=== PATIENT | male | born 1940 | race Caucasian/White ===

== ENCOUNTER 2016-06-30 10:44 | Emergency (ER) | payer OTHER ==
[2016-06-30 12:15] VITALS: BP 142/56; PULSE 72; RESP 18; TEMP 99; O2SAT 92
[2016-06-30] MEDS ORDERED: AZITHROMYCIN 250 MG TAB PO ONE (13:17)
--- NOTE | 2016-06-30 13:18 | DX ---
PA and Lateral Chest Clinical Indications: Cough and dyspnea Comparison: August 10, 2011 Findings: Perihilar bronchial wall thickening and moderate - severely prominent lung volumes are aga in present and consistent with underlying COPD and/or recurrent airways disease. It is difficult to e xclude an early posterior infiltrate in the right lower lobe. There is no pleural fluid. Heart size a nd pulmonary vascularity remain normal. A left chest wall pacer device an associated 3 pacer leads re main in place. Impression: Possible early right lower lobe pneumonia.
--- NOTE | 2016-06-30 13:24 | UCPHY ---
H & P Patient Type: New Chief Complaint Nursing Narrative: sinus and chest congestion started 3 days ago , denies fevers. shortness of breath, chest/lung pain Time Seen by Provider: 06/30/16 13:08 HPI/ROS: This patient reports a 4 day history of nasal congestion. He developed dry cough over the past few days associated with this. He has decreased sleep due to the dry cough. He has no other associated symptoms. He notes no exacerbating or alleviating factors for his symptoms. He is accompanied by his . ROS: Constitutional: No high fevers or chills. No significant fatigued despite the cough. HEENT: No facial pain. No sore throat. Pulmonary: No pleuritic pain. No respiratory distress. Cardiac: No chest pain. No heart palpitations or lightheadedness GI: No nausea vomiting or diaphoresis. : No symptoms musculoskeletal: No lower extremity swelling or pain Integumentary: No symptoms Endocrine: No symptoms and complete review of symptoms is otherwise negative Source: Patient Exam Limitations: No limitations - Medical/Surgical History Hx Cardiac Disease: Yes Other PMH: CVA, [place], PACEMAKER AND CARDIAC STENTS, HIGH CHOLESTROL - Family History Significant Family History: No pertinent family hx - Social History Smoking Status: Former smoker Alcohol Use: Occasionally Drug Use: None - Physical Exam Exam: General Appearance: Alert, no distress. Eyes: Pupils equal and round no pallor or injection. ENT, Mouth: Mucous membranes moist. Respiratory: Faint expiratory wheeze bilaterally. Very mild rales at the left base Cardiovascular: Regular rate and rhythm. No murmur gallop or rub. No JVD. No peripheral edema Gastrointestinal: Abdomen is soft and nontender, no masses, bowel sounds normal. Neurological: Alert with no focal deficits Skin: Warm and dry, no rashes. Musculoskeletal: Neck is supple nontender. Extremities are symmetrical, full range of motion. Psychiatric: Mood and affect are normal DIFFERENTIAL DIAGNOSIS: After history and physical exam differential diagnosis was considered for URI with cough, bronchitis, pneumonia Constitutional: Initial Vital Signs Temperature (C) 37.2 C 06/30/16 12:10 Heart Rate 72 06/30/16 12:10 Respiratory Rate 18 06/30/16 12:10 Blood Pressure 142/56 H 06/30/16 12:10 O2 Sat (%) 92 06/30/16 12:10 O2 Delivery Mode Room Air Allergies/Adverse Reactions: benzocaine [Benzocaine] Allergy (Severe, Verified 06/30/16 12:09) Anaphylaxis niacin [From Niaspan] Allergy (Severe, Verified 06/30/16 12:09) Rash simvastatin [Simvastatin] Allergy (Severe, Verified 06/30/16 12:09) Hives warfarin [Warfarin] Allergy (Severe, Verified 06/30/16 12:09) Other-Enter Comments Home Medications: Medication Instructions Recorded Aspirin/Dipyridamole 25/200 25 mg PO BID 08/08/11 [Aggrenox] Atorvastatin Calcium [Lipitor] 10 mg PO DAILY 08/08/11 Carvedilol 25 mg PO BID 08/08/11 Cholecalciferol (Vitamin D3) 1,000 unit PO BID 08/08/11 [Vitamin D3] Ecotrin 81 mg PO DAILY 08/08/11 Nitroglycerin [Nitrostat] 0.4 mg SL 08/08/11 [place]-3 Fatty Acids/Fish Oil [Fish 1 each PO BID 08/08/11 Oil 1,000 mg Softgel] Piroxicam 20 mg PO DAILY PRN 08/08/11 Psyllium Seed [Metamucil] 5.85 gm PO DAILY 08/08/11 Ramipril [Altace] 5 mg PO DAILY 08/08/11 Albuterol Hfa Anes Only [Proair 2 puffs IH Q4 PRN #1 mdi 06/30/16 Hfa Icu (*)] Azithromycin [Zithromax] 250 mg PO DAILY #4 tab 06/30/16 Medical Decision Making - Diagnostics Imaging: Chest x-ray: I read this as left basilar infiltrate versus atelectasis Dr. Aguila-radiologist actually read as right basilar possible early infiltrate. Otherwise evidence of mild bronchitis by my interpretation. ED Course/Re-evaluation: I counseled patient regarding evidence of early pneumonia. I suggested an IV for blood cultures and customary workup. However the patient is unwilling to proceed with an IV at this time and requests oral medications and outpatient treatment. He does not have SIRS criteria and he appears very well clinically. He is treated with 1st dose of Zithromax. Given his wheeze a think that he also has a mild element of bronchitis associated with this-bronchopneumonia. Will also provide an inhaler. He understands the need to go to the emergency department if he has any significant worsening of symptoms despite the treatment plan - Data Points Medications Given: Discontinued Medications Azithromycin (Zithromax) 500 mg PO EDNOW ONE PRN Reason: Protocol Stop: 06/30/16 13:18 Last Admin: 06/30/16 13:22 Dose: 500 mg Departure - Departure Disposition: Home, Routine, Self-Care Clinical Impression: Bronchopneumonia Condition: Good Instructions: Community Acquired Pneumonia (ED) Additional Instructions: Diagnosis: Bronchopneumonia Plan: Humidifier Albuterol inhaler with spacer for cough, wheeze or shortness of breath You received 1st dose of Zithromax antibiotic day. Continue this with next dose tomorrow once daily. Go to the emergency department if he has any significant worsening symptoms despite the treatment plan Referrals: Ami Morales MD [Primary Care Provider] - As per Instructions Prescriptions: Albuterol Hfa Anes Only [Proair Hfa Icu (*)] 2 puffs IH Q4 PRN #1 mdi PRN Reason: Wheezing Azithromycin [Zithromax] 250 mg PO DAILY #4 tab - PQRS PQRS Measurement: 134: Depression screening and followup, PRIME MD-PHQ2 (12 years and older) Over the last 2 weeks, how often have you been bothered by any of the following problems? 1. Feeling down, depressed, or hopeless? 2. Little interest or pleasure in doing things? Patient answered no to both 1 and 2 130: Documentation of medications. Reviewed all patient medications, doses, route and frequency. 226: Do you smoke? [No.] 47: 65 and older: Advanced care planning. Patient designates surrogate decision maker as spouse 51: 18 years old and older with diagnosis of COPD, spirometry performance. NA 52: 18 years old and older with COPD and symptoms of COPD or FEV1<60% predicted prescribed a B Agonist. NA
== END 2016-06-30 13:30 | disposition home or self-care (01) ==
LOC: CED 10:44
DX: J18.9 Pneumonia, unspecified organism (principal); Z95.0 Presence of cardiac pacemaker; Z95.5 Presence of coronary angioplasty implant and graft; Z86.73 Personal history of transient ischemic attack (TIA), and cerebral infarction without residual deficits; I25.2 Old myocardial infarction
CPT/HCPCS: 71020; G0463; 87400-PO; 99204-PO

== ENCOUNTER → 2017-11-09 | Outpatient (CLI) | payer OTHER | LOC: BHFA 10:45 | PROVIDERS: ATTEND Internal Medicine Cardiovascular Disease | DX: I42.9 Cardiomyopathy, unspecified (principal) | CPT/HCPCS: 93306-PO ==

== ENCOUNTER → 2018-07-05 | Outpatient (CLI) | payer OTHER | LOC: SUPIMAGING 12:16 | PROVIDERS: ATTEND Family Medicine | DX: R06.02 Shortness of breath (principal); R60.9 Edema, unspecified | CPT/HCPCS: 71046-PN ==

== ENCOUNTER 2018-07-09 19:26 | Inpatient (IN) | payer OTHER ==
--- NOTE | 2018-07-09 20:13 | EDPHY ---
H & P Stated Complaint: HYPOXIC, SOB, WEAK, TIRED Time Seen by Provider: 07/09/18 19:47 HPI/ROS: CHIEF COMPLAINT: Shortness of breath HISTORY OF PRESENT ILLNESS: 78-year-old male with CHF and diabetes presents with shortness of breath. Onset of shortness of breath 2 weeks ago, ago gradually increasing. Seen by primary care physician 1 week ago and placed on Lasix every other day. Since then he has had increasing shortness of breath, associated with lethargy and confusion today. Mild bilateral leg swelling without pain. No recent illness or cough. REVIEW OF SYSTEMS: complete 10 point ROS reviewed and is negative except for the noted elements in the HPI - Medical/Surgical History Hx Asthma: No Hx Chronic Respiratory Disease: No Hx Diabetes: Yes Hx Cardiac Disease: Yes Hx Renal Disease: No Hx Cirrhosis: No Hx Alcoholism: No Hx HIV/AIDS: No Other PMH: CVA, [place], PACEMAKER AND CARDIAC STENTS, HIGH CHOLESTROL, CHF, DM - Social History Smoking Status: Former smoker - Physical Exam Exam: General Appearance: Alert, pleasant Eyes: Pupils equal and round, no conjunctival pallor ENT, Mouth: Mucous membranes moist Neck: Normal inspection Respiratory: Normal respiratory rate, lungs are clear to auscultation Cardiovascular: Regular rate and rhythm Gastrointestinal: Abdomen is soft and nontender Neurological: A&O, nonfocal, normal gait Skin: Warm and dry, no rash Extremities: Nontender, no pedal edema Psychiatric: Mood and affect normal Constitutional: Initial Vital Signs Temperature (C) 36.3 C 07/09/18 19:35 Heart Rate 80 07/09/18 19:35 Respiratory Rate 20 07/09/18 19:35 Blood Pressure 131/87 H 07/09/18 19:35 O2 Sat (%) 79 L 07/09/18 19:35 O2 Delivery Mode Nasal Cannula O2 (L/minute) 3 Allergies/Adverse Reactions: benzocaine [Benzocaine] Allergy (Severe, Verified 06/30/16 12:09) Anaphylaxis niacin [From Niaspan] Allergy (Severe, Verified 06/30/16 12:09) Rash simvastatin [Simvastatin] Allergy (Severe, Verified 06/30/16 12:09) Hives warfarin [Warfarin] Allergy (Severe, Verified 06/30/16 12:09) Other-Enter Comments Home Medications: Medication Instructions Recorded Aspirin [Ecotrin] 81 mg PO DAILY 08/08/11 [place]-3 Fatty Acids/Fish Oil [Fish 1 each PO BID 08/08/11 Oil 1,000 mg Softgel] Aspirin/Dipyridamole 25/200 1 each PO BID 07/09/18 [Aggrenox] Atorvastatin Calcium [Lipitor 10 10 mg PO DAILY 07/09/18 mg (*)] Cholecalciferol Vit D3 [Vitamin D3 1,000 units PO BID 07/09/18 (*)] Furosemide [Lasix 20 MG (*)] 20 mg PO MOWEFR 07/09/18 Glimepiride [Amaryl 2 MG (*)] 1 mg PO DAILY 07/09/18 Ramipril [Altace 5mg (*)] 5 mg PO DAILY 07/09/18 Carvedilol [Carvedilol] 25 mg PO BID 07/10/18 Medical Decision Making - Diagnostics EKG Interpretation: EKG interpreted by me reveals a ventricular paced rhythm, rate 70. Interpretation: Abnormal EKG Imaging Results: Chest X-Ray 07/09/18 19:45 Impression: Findings suggesting underlying bronchitis, which is stable. Mild interstitial prominence bilaterally, which is stable and could represent pulmonary edema or interstitial lung disease. No significant interval change. Imaging: I viewed and interpreted images myself ED Course/Re-evaluation: This patient presents with gradually increasing shortness of breath. BNP 2 days ago was 1900 and Lasix was initiated. Oxygen saturation today is 39% on room air. Chest x-ray reveals mild increased interstitial markings. Chest x- ray reveals no evidence of ischemia or dysrhythmia and initial troponin is normal. Clinical presentation c/w pulmonary edema. Lasix 40 mg IV given. The hospitalist service was consulted for admission. 9:00 p.m.-D-dimer is elevated. CT pulmonary angiogram ordered; c/w CHF and reveals no evidence of PE. Pt stable throughout, with O2 sat 95% on 2l oxygen by NC Differential Diagnosis: Differential diagnosis includes though it is not limited to pneumonia, pneumothorax, pulmonary embolism, aortic dissection, pericarditis, acute coronary syndrome. - Data Points Laboratory Results: Laboratory Results 07/09/18 16:50 07/10/18 03:05 Medications Given: Albuterol/Ipratropium (Duoneb) 3 ml IH Q6HRS PRN PRN Reason: Short of Breath/Dyspnea Stop: 01/06/19 10:21 Last Admin: 07/11/18 05:42 Dose: 3 ml Aspirin Buffered (Aspirin Ec) 81 mg PO DAILY FERNANDO Stop: 01/06/19 08:59 Last Admin: 07/11/18 09:23 Dose: 81 mg Atorvastatin Calcium (Lipitor) 10 mg PO DAILY FERNANDO Stop: 01/06/19 08:59 Last Admin: 07/11/18 09:23 Dose: 10 mg Carvedilol (Coreg) 25 mg PO BID FERNANDO Stop: 01/06/19 20:59 Last Admin: 07/11/18 09:24 Dose: 25 mg Cholecalciferol (Vitamin D) 1,000 units PO BID FERNANDO Stop: 01/06/19 08:59 Last Admin: 07/11/18 09:23 Dose: 1,000 units Dipyridamole/Aspirin (Aggrenox) 1 cap PO BID FERNANDO Stop: 01/06/19 08:59 Last Admin: 07/11/18 09:23 Dose: 1 cap Glimepiride (Amaryl) 1 mg PO DAILY [facility] Stop: 01/06/19 08:59 Last Admin: 07/11/18 09:24 Dose: 1 mg Heparin Sodium (Porcine) (Heparin Sc Injection) 5,000 unit SC Q8 [facility] Stop: 01/05/19 21:59 Last Admin: 07/11/18 04:59 Dose: 5,000 unit Insulin Human Lispro (Humalog Lispro) 0 unit SC TIDMEAL [facility] PRN Reason: Protocol Stop: 01/06/19 07:59 Last Admin: 07/11/18 12:22 Dose: Not Given Zylhu-9-Vvyr Ethyl Esters (Fish Oil) 1,000 mg PO BID [facility] Stop: 01/06/19 08:59 Last Admin: 07/11/18 09:23 Dose: 1,000 mg Ramipril (Altace) 5 mg PO DAILY FERNANDO Stop: 01/06/19 08:59 Last Admin: 07/11/18 09:23 Dose: 5 mg Senna/Docusate Sodium (Senokot-S) 1 - 2 tab PO BID [facility] PRN Reason: Protocol Stop: 01/07/19 13:29 Last Admin: 07/11/18 13:27 Dose: 2 tab Discontinued Medications Furosemide (Lasix Injection) 40 mg IVP EDNOW ONE Stop: 07/09/18 20:37 Last Admin: 07/09/18 20:41 Dose: 40 mg Furosemide (Lasix Injection) 40 mg IVP BID@0900,1500 FERNANDO Stop: 01/06/19 08:59 Last Admin: 07/11/18 09:23 Dose: 40 mg Perflutren Lipid Microsphere (Definity) 0 mg IV ONCE ONE Stop: 07/10/18 15:16 Last Admin: 07/10/18 15:35 Dose: Not Given Point of Care Test Results: Chemistry 07/10/18 07/10/18 07/10/18 17:30 11:22 08:50 POC Glucose 101 mg/dL H mg/dL 172 mg/dL H mg/dL 115 mg/dL H mg/dL (70-100) (70-100) (70-100) POC Troponin I 07/09/18 19:52 POC Glucose POC Troponin I 0.02 ng/mL ng/mL (0.00-0.08) Departure - Departure Disposition: [facility]
[2018-07-09 20:27] LABS: PLATELET COUNT 124 10^3/uL (150-400)
[2018-07-09] MEDS ORDERED: FUROSEMIDE 40 MG/4 ML VIAL IVP ONE (20:36)
[2018-07-09] MEDS ORDERED: IOPAMIDOL (ISOVUE 370) 100 ML BTL IV ONE (21:06)
[2018-07-09] MEDS ORDERED: ONDANSETRON 4 MG/2 ML VIAL IVP PRN (21:18)
[2018-07-09] MEDS ORDERED: ACETAMINOPHEN 325 MG TAB PO PRN (21:18)
[2018-07-09] MEDS ORDERED: ONDANSETRON DISINTEGRATING 4 MG TAB PO PRN (21:18)
[2018-07-09] MEDS: HEPARIN 5,000 UNIT/0.5 ML INJ SC SCH (22:37)
--- NOTE | 2018-07-09 23:03 | PDGENHP ---
History and Physical - Chief Complaint SOB - History of Present Illness Julio Barragan is a 78 yo M with a PMHx of CHF, DM who presents to [facility] for SOB. He reports that shortness of breath started approx. 2 weeks ago and has been worsening since. He was seen by his PCP 1 week ago and was placed on 20 mg PO Lasix every other day. He denies any chest pain, palpitations, cough, LE edema, d/c, n/v. History Information - Allergies/Home Medication List Allergies/Adverse Reactions: benzocaine [Benzocaine] Allergy (Severe, Verified 06/30/16 12:09) Anaphylaxis niacin [From Niaspan] Allergy (Severe, Verified 06/30/16 12:09) Rash simvastatin [Simvastatin] Allergy (Severe, Verified 06/30/16 12:09) Hives warfarin [Warfarin] Allergy (Severe, Verified 06/30/16 12:09) Other-Enter Comments Home Medications: Aspirin [Ecotrin] 81 mg PO DAILY 08/08/11 [Last Taken 07/09/18] [place]-3 Fatty Acids/Fish Oil [Fish Oil 1,000 mg Softgel] 1 each PO BID 08/08/11 [Last Taken 07/09/18] Aspirin/Dipyridamole 25/200 [Aggrenox] 1 each PO BID 07/09/18 [Last Taken ] Atorvastatin Calcium [Lipitor 10 mg (*)] 10 mg PO DAILY 07/09/18 [Last Taken 05/17] Cholecalciferol Vit D3 [Vitamin D3 (*)] 1,000 units PO BID 07/09/18 [Last Taken 07/09/18] Furosemide [Lasix 20 MG (*)] 20 mg PO MOWEFR 07/09/18 [Last Taken 07/09/18] Glimepiride [Amaryl 2 MG (*)] 1 mg PO DAILY 07/09/18 [Last Taken 07/09/18] Ramipril [Altace 5mg (*)] 5 mg PO DAILY 07/09/18 [Last Taken 07/09/18] I have personally reviewed and updated: family history, medical history, social history, surgical history - Past Medical History CHF, diabetes type 2 - Surgical History Reports: no pertinent surgical hx - Family History Positive for: non-pertinent - Social History Smoking Status: Former smoker Review of Systems Review of Systems: ROS: 10pt was reviewed & negative except for what was stated in HPI & below Physical Exam Physical Exam: Temp Pulse Resp BP Pulse Ox 36.3 C 61 16 126/64 H 94 07/09/18 22:11 07/09/18 22:11 07/09/18 22:11 07/09/18 22:11 07/09/18 22:11 O2 (L/minute) 3 Constitutional: no apparent distress Eyes: PERRL Ears, Nose, Mouth, Throat: moist mucous membranes Cardiovascular: regular rate and rhythym Respiratory: reduced air movement Gastrointestinal: soft, non-tender abdomen Skin: warm Neurologic: AAOx3 Psychiatric: interacting appropriately Lab Data & Imaging Review 07/09/18 16:50 07/09/18 16:50 WBC 5.48 10^3/uL (3.80-9.50) 07/09/18 16:50 RBC 4.82 10^6/uL (4.40-6.38) 07/09/18 16:50 Hgb 15.3 g/dL (13.7-17.5) 07/09/18 16:50 Hct 44.5 % (40.0-51.0) 07/09/18 16:50 MCV 92.3 fL (81.5-99.8) 07/09/18 16:50 MCH 31.7 pg (27.9-34.1) 07/09/18 16:50 MCHC 34.4 g/dL (32.4-36.7) 07/09/18 16:50 RDW 13.7 % (11.5-15.2) 07/09/18 16:50 Plt Count 124 10^3/uL (150-400) L 07/09/18 16:50 MPV 9.8 fL (8.7-11.7) 07/09/18 16:50 Neut % (Auto) 57.1 % (39.3-74.2) 07/09/18 16:50 Lymph % (Auto) 23.7 % (15.0-45.0) 07/09/18 16:50 [place] % (Auto) 9.5 % (4.5-13.0) 07/09/18 16:50 Eos % (Auto) 7.7 % (0.6-7.6) H 07/09/18 16:50 Baso % (Auto) 0.9 % (0.3-1.7) 07/09/18 16:50 Nucleat RBC Rel Count 0.0 % (0.0-0.2) 07/09/18 16:50 Absolute Neuts (auto) 3.13 10^3/uL (1.70-6.50) 07/09/18 16:50 Absolute Lymphs (auto) 1.30 10^3/uL (1.00-3.00) 07/09/18 16:50 Absolute Monos (auto) 0.52 10^3/uL (0.30-0.80) 07/09/18 16:50 Absolute Eos (auto) 0.42 10^3/uL (0.03-0.40) H 07/09/18 16:50 Absolute Basos (auto) 0.05 10^3/uL (0.02-0.10) 07/09/18 16:50 Absolute Nucleated RBC 0.00 10^3/uL (0-0.01) 07/09/18 16:50 Immature Gran % 1.1 % (0.0-1.1) 07/09/18 16:50 Immature Gran # 0.06 10^3/uL (0.00-0.10) 07/09/18 16:50 D-Dimer 1.37 ug/mLFEU (0.00-0.50) H 07/09/18 18:19 Sodium 134 mEq/L (135-145) L 07/09/18 16:50 Potassium 4.4 mEq/L (3.5-5.2) 07/09/18 16:50 Chloride 104 mEq/L (97-110) 07/09/18 16:50 Carbon Dioxide 23 mEq/l (22-31) 07/09/18 16:50 Anion Gap 7 mEq/L (6-14) 07/09/18 16:50 BUN 30 mg/dL (7-23) H 07/09/18 16:50 Creatinine 1.2 mg/dL (0.7-1.3) 07/09/18 16:50 Estimated GFR 59 07/09/18 16:50 Glucose 185 mg/dL (70-100) H 07/09/18 16:50 Calcium 9.5 mg/dL (8.5-10.4) 07/09/18 16:50 Total Bilirubin 0.8 mg/dL (0.1-1.4) 07/09/18 16:50 Conjugated Bilirubin 0.4 mg/dL (0.0-0.5) 07/09/18 16:50 Unconjugated Bilirubin 0.4 mg/dL (0.0-1.1) 07/09/18 16:50 AST 23 IU/L (17-59) 07/09/18 16:50 ALT 29 IU/L (21-72) 07/09/18 16:50 Alkaline Phosphatase 67 IU/L (38-126) 07/09/18 16:50 POC Troponin I 0.02 ng/mL (0.00-0.08) 07/09/18 19:52 NT-Pro-B Natriuret Pep 2500 pg/mL (0-450) H 07/09/18 16:50 Total Protein 6.3 g/dL (6.3-8.2) 07/09/18 16:50 Albumin 3.6 g/dL (3.5-5.0) 07/09/18 16:50 Lipase 191 IU/L (23-300) 07/09/18 16:50 Assessment & Plan Assessment: Acute Systolic CHF Exacerbation - SOB for 2 weeks, gradually worsening - CXR and CTA on admission showing findings suggesting CHF - S/p 40 mg IV Lasix in ED, will continue for now - Repeat TTE ordered, last in 2011 - Monitor I/O, BMP, daily weight T2DM - Continue home Glimepiride - Ordered SSI as IP Hypertension - Continue home ACEi HLD - Continue home statin FEN: Cardiac Diet DVT PPx: SubQ Heparin Code: FULL Dispo: Admit ot Observation
[2018-07-09] MEDS ORDERED: D50W 25 GM/50 ML SYR IVP PRN (23:05)
[2018-07-10] MEDS: HEPARIN 5,000 UNIT/0.5 ML INJ SC SCH ×3 (06:06→22:14)
[2018-07-10] MEDS: INSULIN LISPRO 100 UNIT/ML SC SCH ×3 (08:50→17:46)
--- NOTE | 2018-07-10 09:37 | ASMTCMCOM ---
CM Note CM Note Notes: Chart reviewed for discharge planning purposes, 78 year old male with 2 week complaints of increasing SOB. Placed on 20 mg lasix QOD. Admitted via ED for inpatient management. No current needs identified. CM available should needs arise. Plan: Likely to discharge independently when medically stable for discharge. Date Signed: 07/10/2018 09:37 AM Electronically Signed By:Lu Herrera RN
[2018-07-10] MEDS ORDERED: IPRATROPIUM/ALBUTEROL 3 ML DEYVIAL IH PRN (10:22)
[2018-07-10] MEDS: GLIMEPIRIDE 2 MG TAB PO SCH (10:22)
[2018-07-10] MEDS: ASPIRIN EC 81 MG TAB PO SCH (10:22)
[2018-07-10] MEDS: OMEGA-3 FATTY ACIDS 1,000 MG CAP PO SCH ×2 (10:22→22:13)
[2018-07-10] MEDS: RAMIPRIL 5 MG CAP PO SCH (10:22)
[2018-07-10] MEDS: ASPIRIN/DIPYRIDAMOLE CAPSULE PO SCH ×2 (10:23→22:13)
[2018-07-10] MEDS: ATORVASTATIN CALCIUM 10 MG TAB PO SCH (10:23)
[2018-07-10] MEDS: CHOLECALCIFEROL VIT D3 1,000 UNITS TAB PO SCH ×2 (10:23→22:14)
[2018-07-10] MEDS: FUROSEMIDE 40 MG/4 ML VIAL IVP SCH ×2 (10:23→15:18)
--- NOTE | 2018-07-10 12:34 | HOSPPROG ---
Hospitalist Progress Note Assessment/Plan: DIAGNOSES: * acute congestive heart failure appears primarily right-sided by my assessment , however some left-sided failure may be present as well * suspect he likely has emphysema and COPD based on his symptoms, CT scan appearance, and smoking history * history of ischemic cardiomyopathy with severe reduced LV function and coronary stent placement in the past * notably the patient has been on an ERIC-inhibitor but no beta-carmelo which would be unusual given his history of LV dysfunction and his presence of pacer AICD * chronic kidney disease which appears to be a new diagnosis for him as he is unaware of it * chronic hypoxemic respiratory failure * diabetes mellitus type 2 * hyperlipidemia * former smoking history I think the most likely scenario appears to be right-sided heart failure from unrecognized COPD and probable pulmonary hypertension. However this needs to be assessed more physiologically. PFTs and looking at pulmonary pressures on echo will be helpful. I suspect will need to add bronchodilators and other measures for long-term management of chronic lung disease. In addition he probably needs 24 hr oxygen as as opposed to nocturnal oxygen only. However at this point certainly need to look at his valves as significant valve disease could cause right-sided heart failure, and given his history of coronary disease should reassess his LV function and look for any possible new wall motion abnormalities. Beta-carmelo should probably be added assuming he still has poor LV function Seen by me today on hospitals rounds and entered disciplinary rounds I reviewed the patient's case in detail today with Dr. Larry Cool PLANS: * Continue diuresis * Check echocardiogram result * PFTs pre and post bronchodilator * Will consider addition of bronchodilators, beta-blockers, inhaled steroids, and other medications once we have more complete test results * Consider Lexiscan stress as well (he does not walk well enough to do a treadmill test) * Presuming we do find obstructive lung disease, would recommend outpatient pulmonary rehab, and he may be a good patient for outpatient cardiac rehab as well * Given need for ongoing IV diuretic and ongoing further assessments with imaging studies will need at least 1 more night here in the hospital so will need to changed inpatient SUBJECTIVE: Feels somewhat better but still weak in with shortness of breath No angina Patient does admit he has was a smoker for 40 years but quit a few years ago Has never been diagnosed with lung disease Did have edema in his legs over the last couple weeks OBJECTIVE Vitals reviewed: All 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 I do not really see evidence of pulmonary edema but particularly on the CT it looks to me like there is emphysema diffusely. He does have hyperexpansion noted on both studies on my review. Lab data: Creatinine up very slightly today Sugars in reasonable range for inpatient care but are a bit high Objective: Vital Signs Temp Pulse Resp BP Pulse Ox 36.4 C 67 19 136/66 H 90 L 07/10/18 11:18 07/10/18 11:18 07/10/18 11:18 07/10/18 11:18 07/10/18 11:18 Laboratory Results 07/10/18 03:05 07/09/18 07/10/18 07/11/18 06:59 06:59 06:59 Output Total 2350 375 Balance -2350 -375 - Time Spent With Patient Time Spent with Patient: greater than 35 minutes Time Spent with Patient: Greater than 35 minutes spent on this patients care, greater than 50% of time spent counseling, educating, and coordinating care regarding the above mentioned plan. ICD10 Worksheet Patient Problems: Problems Problem Status Onset Cor pulmonale Acute - ICD10 Problem Qualifiers (1) Cor pulmonale
[2018-07-10] MEDS ORDERED: PERFLUTREN LIPID MICROSPHERES 1.1 MG/ML VIAL IV ONE (15:15)
--- NOTE | 2018-07-10 17:18 | ECHO ---
[email or web address] [address] Main: [phone] Fax: Transthoracic Echocardiogram Name: MELISSA ROSAS MR#: [id number] Study Date: 07/10/2018 Study Time: 02:17 PM Date of : 1940 Age: 78 year(s) Height: 175.3 cm (69 in.) Weight: 85.28 kg (188 lb.) BSA: 2.01 m2 Gender: Male Examination: Echo with Definity Indication: CHF exacerbation Image Quality: Adequate Contrast: I.V. dose of Definity was administered to improve endocardial border definition. Requested by: Keyon Ortega BP: 136 mmHg/88 mmHg Heart Rate: Rhythm: Indication: CHF exacerbation Procedure Staff Civil Manager: Jaimee Hurt RD Reading Physician: Larry Cool MD Requesting Provider: Conclusions: Severely reduced systolic LV function. EF is 11 %. Severe global hypokinesis. Grade 1 diastolic dysfunction (abnormal relaxation). No LV apical thrombus. There is a ICD/Pacer wire noted in the right ventricle. Mild mitral annular calcification. Mild to moderate mitral regurgitation. Minimal aortic cusp calcification is noted. Mild tricuspid regurgitation is present. Right ventricular systolic pressure measures 36mmHg. The pulmonary artery pressure is mildly increased. Mild to moderate pulmonic valve regurgitation. Definity contrast was used to r/o LV thrombus. Measurements: Chambers Valvular Assessment AV/MV Valvular Assessment TV/PV Normal Normal Normal Name Value Range Name Value Range Name Value Range Ao Nany (MM): 3.0 cm (2.2 cm-3.7 AV Vmax: 1.26 m/s (1 m/s-1.7 TR Vmax: 2.80 mm/s ( - ) cm) m/s) TR PGmax: 31 mmHg ( - ) IVSd (2D): 0.9 cm (0.6 cm-1.1 AV maxP mmHg ( - ) syst. PAP: 36 mmHg ( - ) cm) LVOT Vmax: 0.68 m/s (0.7 m/s-1.1 PV Vmax: 0.77 m/s (0.6 m/s-0.9 LVDd (2D): 5.9 cm (4.2 cm-5.9 m/s) m/s) cm) JASMINA (Vmax): 1.7 cm2 ( - ) PV PGmax: 2 mmHg ( - ) LVDs (2D): 5.4 cm (2.1 cm-4 MV E Vmax: 0.66 m/s ( - ) cm) MV A Vmax: 0.81 m/s ( - ) LVPWd (2D): 0.9 cm (0.6 cm-1 MV E/A: 0.81 ( - ) cm) Patient: MELISSA ROSAS Study Date: 07/10/2018 Page 1 of 2 02:17 PM LVOTd 2.0 cm 2.0 cm mm LVEF (BP): 11 % (>=55 %) RVDd(2D): 3.5 cm (1.9 cm-3.8 cmmm) Continued Measurements: Chambers Valvular Assessment AV/MV Valvular Assessment TV/PV Name Value Name Value Name Value LADs: 4.0 cm MV DecTime: 134 m/s CVP (est.): 5 mmHg LADs Lon.6 cm MV E' Septal: 0.04 m/s LA Area: 20.7 cm2 MV E/E' Septal: 15.10 TAPSE: 1.4 cm MV E/E' Lateral: 12.60 RA Area: 16.7 cm2 Findings: Left Ventricle: Dilated left ventricle. No LV hypertrophy. Severely reduced systolic LV function. EF is 11 %. Severe global hypokinesis. Grade 1 diastolic dysfunction (abnormal relaxation). No LV apical thrombus. Right Ventricle: Normal size right ventricle. Mildly reduced RV function. There is a ICD/Pacer wire noted in the right ventricle. Left Atrium: The left atrium is mildly dilated. Right Atrium: The right atrium is mildly dilated. There is a pacemaker lead noted in the right atrium. Mitral Valve: There is mild thickening of the mitral valve leaflets. Mild mitral annular calcification. Mild to moderate mitral regurgitation. No mitral stenosis is present. Aortic Valve: The aortic valve is tri-leaflet. Minimal aortic cusp calcification is noted. No aortic valve stenosis is present. Trivial to mild aortic valve regurgitation. Tricuspid Valve: The tricuspid valve appears normal. Mild tricuspid regurgitation is present. Right ventricular systolic pressure measures 36mmHg. The pulmonary artery pressure is mildly increased. Pulmonic Valve: Pulmonary valve not well visualized. Mild to moderate pulmonic valve regurgitation. Aorta: Normal size aortic root measuring 3.0 cm. IVC: Normal size and course of the IVC. Pericardium: No pericardial effusion. (No Signature Object) Patient: MELISSA ROSAS Study Date: 07/10/2018 Page 2 of 2 02:17 PM [id number]
--- NOTE | 2018-07-10 20:36 | PDMN ---
Medical Necessity Medical necessity: Pt meets INPT criteria per MD as of 07/10/18 and [facility] M-190 Heart Failure (est. LOS >2 MN for ongoing eval/mgmt of acute CHF, suspect emphysema and COPD; hx ischemic cardiomyopathy, CAD/stent, CKD, chronic hypoxemic respiratory failure, DM).
[2018-07-10] MEDS: CARVEDILOL 25 MG TAB PO SCH (22:16)
[2018-07-11] MEDS: HEPARIN 5,000 UNIT/0.5 ML INJ SC SCH ×3 (04:59→20:51)
[2018-07-11] MEDS: FUROSEMIDE 40 MG/4 ML VIAL IVP SCH (09:23)
[2018-07-11] MEDS: RAMIPRIL 5 MG CAP PO SCH (09:23)
[2018-07-11] MEDS: ATORVASTATIN CALCIUM 10 MG TAB PO SCH (09:23)
[2018-07-11] MEDS: CHOLECALCIFEROL VIT D3 1,000 UNITS TAB PO SCH ×2 (09:23→20:50)
[2018-07-11] MEDS: OMEGA-3 FATTY ACIDS 1,000 MG CAP PO SCH ×2 (09:23→20:50)
[2018-07-11] MEDS: ASPIRIN/DIPYRIDAMOLE CAPSULE PO SCH ×2 (09:23→20:50)
[2018-07-11] MEDS: ASPIRIN EC 81 MG TAB PO SCH (09:23)
[2018-07-11] MEDS: CARVEDILOL 25 MG TAB PO SCH ×2 (09:24→20:50)
[2018-07-11] MEDS: GLIMEPIRIDE 2 MG TAB PO SCH (09:24)
[2018-07-11] MEDS: INSULIN LISPRO 100 UNIT/ML SC SCH ×3 (09:26→18:10)
--- NOTE | 2018-07-11 10:19 | CPEKG ---
Test Reason : OPEN Blood Pressure : / mmHG Vent. Rate : 070 BPM Atrial Rate : 070 BPM P-R Int : 348 ms QRS Dur : 194 ms QT Int : 513 ms P-R-T Axes : 020 -72 115 degrees QTc Int : 554 ms Ventricular-paced rhythm Confirmed by Zen Butterfield ([id number]) on 07/11/2018 10:19:00 AM Referred By: Confirmed By:Zen Butterfield
[2018-07-11] MEDS ORDERED: LACTULOSE 20 GM/30 ML UDCUP PO PRN (11:35)
[2018-07-11] MEDS ORDERED: POLYETHYLENE GLYCOL 3350 17 GM PKT PO PRN (11:35)
[2018-07-11] MEDS ORDERED: BISACODYL 10 MG SUPP PR PRN (11:35)
[2018-07-11] MEDS ORDERED: MAGNESIUM HYDROXIDE 30 ML UDCUP PO PRN (11:35)
[2018-07-11] MEDS ORDERED: CANN-EASE 2 GM TUBE TP PRN (11:39)
[2018-07-11] MEDS: SENNOSIDES/DOCUSATE SODIUM TAB PO SCH ×2 (13:27→20:50)
--- NOTE | 2018-07-11 14:39 | HOSPPROG ---
Hospitalist Progress Note Assessment/Plan: DIAGNOSES: * acute on chronic congestive heart failure, systolic * acute hypoxemic respiratory failure * history of ischemic cardiomyopathy with severe reduced LV function and coronary stent placement in the past * notably the patient has been on an ERIC-inhibitor but no beta-carmelo which would be unusual given his history of LV dysfunction and his presence of pacer AICD * chronic kidney disease which appears to be a new diagnosis for him as he is unaware of it * chronic hypoxemic respiratory failure on oxygen; in addition to CHF, suspect mild COPD based on CT and chest x-ray appearance, but PFTs are in good range at this time * diabetes mellitus type 2: Sugars in good range here so far * hyperlipidemia * former smoking history notably his EF has decreased from 25% in October 2017 to 17% now PFTs are actually very good are actually very good and do not show evidence of and did not show significant obstruction at this time Overall here he has diuresed very nicely so far. He is feeling better in terms of dyspnea, strength, ambulation, and is more alert. (note that he has not collected all urine so I&O numbers underestimate diuresis; has 7 kg wt loss here.) At present the hatch will be to prevent recurrent episodes of symptoms, and maintain or improve LV function. He will need better medication regiment, needs eval for ischemia. On review at this time he and the family tell me that he has not been on a sodium restricted diet and does not recall being counseled about that before. PLANS: * Continue diuresis but will resume his usual oral dose at this time instead of IV * Ordered Lexiscan stress for tomorrow (he does not walk well enough to do a treadmill test) * Will have Cardiology consult in him tomorrow to review Lexiscan results, and to look at whether he should have increase in beta-carmelo or ARB, or addition of other medications for heart failure at this time; suspect addition of Aldactone and Entresto would be recommended but will see what cardiology's opinion is * And did not show significant obstruction I had a very long discussion with the patient and his family at the bedside today on counseling for low-sodium diet and ways to keep the diet palatable without sodium * At this point do not think that further assessment or treatment of his pulmonary issues is necessary * Continue to follow blood sugars * Recheck potassium and magnesium Seen by me today on hospitalist rounds and mulitdisc rounds SUBJECTIVE: Feels somewhat better but still weak in with shortness of breath No angina Patient does admit he has was a smoker for 40 years but quit a few years ago Has never been diagnosed with lung disease Did have edema in his legs over the last couple weeks OBJECTIVE Vitals reviewed: All stable with no fever Machine Records Units Supervisor, my review: Sinus Note: I&O numbers are in accurate as the patient was unaware of the need to keep all urine and so we have numbers that under estimated his actual diuresis His weight is decreased however by 7 kg so far here Exam: alert oriented Looks a bit more energetic today skin warm dry color ok resps not labored lungs diminished but clear BSs heart regular abd soft nondistended nontender, bowel sounds present limbs warm, edema is notably decreased at this time compared to prior exams iv site ok Imaging: I reviewed the images of his chest x-ray and CT scan from last night. I do not really see evidence of pulmonary edema but particularly on the CT it looks to me like there is emphysema diffusely. He does have hyperexpansion noted on both studies on my review. Lab data: Creatinine up very slightly today Sugars in reasonable range for inpatient care stable at 1.4 today Echocardiogram: EF down to 17% down from 25% in October 2017 PFTs appear relatively normal at this time Objective: Vital Signs Temp Pulse Resp BP Pulse Ox 36.5 C 67 10 L 99/55 L 95 07/11/18 11:00 07/11/18 11:00 07/11/18 11:00 07/11/18 11:00 07/11/18 11:00 Laboratory Results 07/11/18 03:30 07/10/18 07/11/18 07/12/18 06:59 06:59 06:59 Intake Total 300 Output Total 150 Balance 150 - Time Spent With Patient Time Spent with Patient: greater than 35 minutes Time Spent with Patient: Greater than 35 minutes spent on this patients care, greater than 50% of time spent counseling, educating, and coordinating care regarding the above mentioned plan. ICD10 Worksheet Patient Problems: Problems Problem Status Onset Cor pulmonale Acute - ICD10 Problem Qualifiers (1) Cor pulmonale
[2018-07-11] MEDS ORDERED: SENNOSIDES/DOCUSATE SODIUM TAB PO SCH (21:00)
[2018-07-12] MEDS: HEPARIN 5,000 UNIT/0.5 ML INJ SC SCH ×3 (06:39→21:12)
[2018-07-12] MEDS: INSULIN LISPRO 100 UNIT/ML SC SCH ×3 (08:19→17:29)
[2018-07-12] MEDS: GLIMEPIRIDE 2 MG TAB PO SCH (09:39)
[2018-07-12] MEDS: ASPIRIN/DIPYRIDAMOLE CAPSULE PO SCH ×2 (09:40→21:12)
[2018-07-12] MEDS: ATORVASTATIN CALCIUM 10 MG TAB PO SCH (09:41)
[2018-07-12] MEDS: SENNOSIDES/DOCUSATE SODIUM TAB PO SCH ×2 (09:41→22:53)
[2018-07-12] MEDS: ASPIRIN EC 81 MG TAB PO SCH (09:42)
[2018-07-12] MEDS: OMEGA-3 FATTY ACIDS 1,000 MG CAP PO SCH ×2 (09:42→21:11)
[2018-07-12] MEDS: CARVEDILOL 25 MG TAB PO SCH ×2 (09:42→21:11)
[2018-07-12] MEDS: CHOLECALCIFEROL VIT D3 1,000 UNITS TAB PO SCH ×2 (09:42→21:11)
[2018-07-12] MEDS: RAMIPRIL 5 MG CAP PO SCH (09:42)
[2018-07-12] MEDS ORDERED: REGADENOSON 0.4 MG/5 ML SYR IVP ONE (11:33)
--- NOTE | 2018-07-12 15:03 | CPR ---
DATE OF PROCEDURE: 07/12/2018 PROCEDURE: Lexiscan nuclear stress test. INDICATION: Shortness of breath. He has a history of an AL 15 years ago. He has a pacemaker in placed. EKG showed an atrial sensed ventricular paced rhythm with a rate of 64, blood pressure 100/50, heart rate 64, oxygen saturation 91%. He was asymptomatic. STRESS PORTION: Lexiscan nuclear stress test: Lexiscan was injected rapidly, followed by saline flush. Cardiolite was then injected, followed by saline flush. His blood pressure did drop to 84/40, oxygen saturation 92%, heart rate max 76. He had abdominal discomfort after the injection. His blood pressure was stable. EKG remained stable throughout the test. Resting blood pressure 100/58, oxygen saturation 94%, heart rate 75. Abdominal discomfort had subsided. At this time, he is stable for nuclear imaging. /[id number]/MODL MTDD
--- NOTE | 2018-07-12 15:11 | ASMTCMCOM ---
CM Note CM Note Notes: Pt on PO lasiks. Had stress test today. PT/OT rec: Home Independently. Transitional Care team to follow. No other CM needs identified. CM available if needs arise. Pt will likely discharge Independent. Plan: Independent Date Signed: 07/12/2018 03:11 PM Electronically Signed By:REYNA Munson
--- NOTE | 2018-07-12 16:35 | HOSPPROG ---
Hospitalist Progress Note Assessment/Plan: Acute on chronic congestive heart failure systolic- patient with known history of congestive heart failure. Patient is new to me but I reviewed his chart today. Previous LVEF of 25% from previous echo. Echo obtained this admission shows LVEF of 11% with severe global hypokinesis. Nuclear medicine MPI Lexiscan today showed LVEF of 20%, with old infarct inferior lateral wall but no definite reversible ischemia. I discussed this case with his outpatient office support associate who felt that the patient was compensated no need to start diuretics now. He has an appointment with his outpatient office support associate on Thursday. -monitor on telemetry -resume home Lasix -continue ramipril -patient allergic to Coumadin. On aspirin and dipyridamole continue Acute hypoxemic respiratory failure- resolved. Good response to intravenous diuretics. Continue to monitor pulse ox for desaturation. HIRAM on CKD- unsure what baseline creatinine as but up to 1.4. Creatinine on admission was 1.2. For no repeat creatinine in 2 days. Will repeat renal panel in the morning Non insulin dependent diabetes mellitus- hold glimepiride. well control on sliding scale will continue here Hyperlipidemia-continue Lipitor. Prophylaxis-SCDs heparin Fluids-none Electrolytes-within normal limits Nutrition-cardiac diet Cor-full code Dispo-inpatient for congestive heart failure anticipate discharge in next day or 2 Subjective: No shortness of breath today. No chest pain or other complaints. Objective: Vital Signs Temp Pulse Resp BP Pulse Ox 36.4 C 64 17 112/62 90 L 07/12/18 16:00 07/12/18 16:00 07/12/18 16:00 07/12/18 16:00 07/12/18 16:00 Laboratory Results 07/11/18 03:30 07/11/18 07/12/18 07/13/18 05:59 05:59 05:59 Intake Total 300 600 Output Total 150 825 Balance 150 -225 - Physical Exam Constitutional: no apparent distress, appears nourished, not in pain Eyes: PERRL, anicteric sclera, EOMI Ears, Nose, Mouth, Throat: moist mucous membranes, hearing normal, ears appear normal, no oral mucosal ulcers Cardiovascular: regular rate and rhythym, no murmur, rub, or gallop Respiratory: no respiratory distress, no rales or rhonchi, clear to auscultation Gastrointestinal: normoactive bowel sounds, soft, non-tender abdomen, no palpable masses Genitourinary: no bladder fullness, no bladder tenderness, no renal bruits Skin: no rashes or abrasions, no fluctuance, no induration Musculoskeletal: full muscle strength, no muscle tenderness, normal joint ROM Neurologic: AAOx3, sensation intact bilaterally Psychiatric: interacting appropriately, not anxious, not encephalopathic, thought process linear Lymph, Heme, Immunologic: no cervical LAD, no supraclavicular LAD ICD10 Worksheet Patient Problems: Problems Problem Status Onset Chronic Disease Mgmt/Transitional care Acute Cor pulmonale Acute
[2018-07-13 04:24] LABS: PLATELET COUNT 106 10^3/uL (150-400)
[2018-07-13 07:53] VITALS: BP 114/67
[2018-07-13] MEDS: HEPARIN 5,000 UNIT/0.5 ML INJ SC SCH (07:56)
[2018-07-13] MEDS: INSULIN LISPRO 100 UNIT/ML SC SCH (08:05)
[2018-07-13] MEDS: SENNOSIDES/DOCUSATE SODIUM TAB PO SCH (09:12)
[2018-07-13] MEDS: CARVEDILOL 25 MG TAB PO SCH (09:13)
[2018-07-13] MEDS: GLIMEPIRIDE 2 MG TAB PO SCH (09:13)
[2018-07-13] MEDS: ATORVASTATIN CALCIUM 10 MG TAB PO SCH (09:13)
[2018-07-13] MEDS: OMEGA-3 FATTY ACIDS 1,000 MG CAP PO SCH (09:13)
[2018-07-13] MEDS: CHOLECALCIFEROL VIT D3 1,000 UNITS TAB PO SCH (09:13)
[2018-07-13] MEDS: ASPIRIN EC 81 MG TAB PO SCH (09:13)
[2018-07-13] MEDS: RAMIPRIL 5 MG CAP PO SCH (09:13)
[2018-07-13] MEDS: ASPIRIN/DIPYRIDAMOLE CAPSULE PO SCH (09:14)
--- NOTE | 2018-07-13 12:40 | ASDISCHSUM ---
Discharge Information Plan Status:Home with No Needs Medically Cleared to Leave:07/12/2018 Discharge Date:07/13/2018 11:10 AM CM D/C Disposition:Home, Routine, Self-Care ADT D/C Disposition:Home, Routine, Self-Care Projected Discharge Date:07/13/2018 11:10 AM Transportation at D/C: Discharge Delay Reason: Follow-Up Date:07/13/2018 11:10 AM Discharge Slot: Final Diagnosis: Placement Information Patient Contact Information Contact Name:RUBEN Relationship: Address:[address] City:[place] Alternate Phone: State/Zip Code:[place] [address] Email: Financial Information Financial Class:Medicare Primary Plan Desc:MEDICARE INPATIENT Primary Plan Number:[id number] Secondary Plan Desc:FELI HATCHJASONNICOLEYUNIER Secondary Plan Number:[id number] Assessment Information LACE LACE Length of stay for Answers: 2 days current admission Acuity / Level of Answers: Yes Care: Did the patient have an inpatient admission? Comorbidities - select Answers: Congestive heart failure all that apply Other Notes: Pacemaker # of Emergency department Answers: 1-2 visits in the last 6 months Score: 9 Date Signed: 07/13/2018 12:37 PM Electronically Signed By:Jessie Horton RN [facility] CM Progress Note CM Note CM Note Notes: Chart reviewed for discharge planning purposes, 78 year old male with 2 week complaints of increasing SOB. Placed on 20 mg lasix QOD. Admitted via ED for inpatient management. No current needs identified. CM available should needs arise. Plan: Likely to discharge independently when medically stable for discharge. Date Signed: 07/10/2018 09:37 AM Electronically Signed By:Lu Herrera RN [facility] CM Progress Note CM Note CM Note Notes: Pt on PO lasiks. Had stress test today. PT/OT rec: Home Independently. Transitional Care team to follow. No other CM needs identified. CM available if needs arise. Pt will likely discharge Independent. Plan: Independent Date Signed: 07/12/2018 03:11 PM Electronically Signed By:REYNA Munson Case Management Discharge Plan Note Case Management Discharge Discharge Order Complete? Answers: Yes Patient to Obtain Answers: via Family Medications Discharge Comments Notes: 07/13/2018 Case Management Note Pt to discharge independent without any case management needs. Date Signed: 07/13/2018 12:38 PM Electronically Signed By:Jessie Horton RN Intervention Information Intervention Type:*IM-Signed Date of Service:07/13/2018 11:50 AM Patient Type:Inpatient Staff Member:Kaylah Her Hours: Discipline: Severity: Comment:
--- NOTE | 2018-07-13 16:29 | HOSPPROG ---
Hospitalist Progress Note Assessment/Plan: Acute on chronic congestive heart failure systolic- patient with known history of congestive heart failure. Patient is new to me but I reviewed his chart today. Previous LVEF of 25% from previous echo. Echo obtained this admission shows LVEF of 11% with severe global hypokinesis. Nuclear medicine MPI Lexiscan today showed LVEF of 20%, with old infarct inferior lateral wall but no definite reversible ischemia. I discussed this case with his outpatient check pilot who felt that the patient was compensated no need to start diuretics now. He has an appointment with his outpatient check pilot on Thursday. -monitor on telemetry -resume home Lasix -continue ramipril -patient allergic to Coumadin. On aspirin and dipyridamole continue Acute hypoxemic respiratory failure- resolved. Good response to intravenous diuretics. Continue to monitor pulse ox for desaturation. HIRAM on CKD- unsure what baseline creatinine as but up to 1.4. Creatinine on admission was 1.2. For no repeat creatinine in 2 days. Will repeat renal panel in the morning Non insulin dependent diabetes mellitus- hold glimepiride. well control on sliding scale will continue here Hyperlipidemia-continue Lipitor. Prophylaxis-SCDs heparin Fluids-none Electrolytes-within normal limits Nutrition-cardiac diet Cor-full code Dispo-inpatient for congestive heart failure anticipate discharge in next day or 2 Subjective: feels great. no complaints Objective: Vital Signs Temp Pulse Resp BP Pulse Ox 36.8 C 66 18 114/67 93 07/13/18 07:52 07/13/18 09:13 07/13/18 07:52 07/13/18 09:13 07/13/18 07:52 Laboratory Results 07/13/18 03:13 07/13/18 03:13 07/12/18 07/13/18 07/14/18 05:59 05:59 05:59 Intake Total 600 250 Output Total 825 850 Balance -225 -600 - Physical Exam Constitutional: no apparent distress, appears nourished, not in pain Eyes: PERRL, anicteric sclera, EOMI Ears, Nose, Mouth, Throat: moist mucous membranes, hearing normal, ears appear normal, no oral mucosal ulcers Cardiovascular: regular rate and rhythym, no murmur, rub, or gallop Respiratory: no respiratory distress, no rales or rhonchi, clear to auscultation Gastrointestinal: normoactive bowel sounds, soft, non-tender abdomen, no palpable masses Genitourinary: no bladder fullness, no bladder tenderness, no renal bruits Skin: no rashes or abrasions, no fluctuance, no induration Musculoskeletal: full muscle strength, no muscle tenderness, normal joint ROM Neurologic: AAOx3, sensation intact bilaterally Psychiatric: interacting appropriately, not anxious, not encephalopathic, thought process linear Lymph, Heme, Immunologic: no cervical LAD, no supraclavicular LAD ICD10 Worksheet Patient Problems: Problems Problem Status Onset Chronic Disease Mgmt/Transitional care Acute Cor pulmonale Acute
--- NOTE | 2018-07-13 16:34 | PDDCSUM ---
Discharge Summary Discharge Summary: The patient is a 78-year-old with a past medical history of congestive heart failure, diabetes who presented to the hospital with complaints of shortness of breath. His shortness of shortness of breath started approximately 2 weeks prior to admission. A repeat echocardiogram was obtained which showed a left ventricular ejection fraction of 11%, with severe global hypokinesis. He was given IV Lasix and diuresed with good result. His shortness of breath resolved and he was able to ambulate without hypoxia on room air. I spoke with his outpatient home health specialist Elan Mccormick who felt comfortable with discharging patient to follow up with him. Discharge diagnosis Acute hypoxemic respiratory failure secondary to congestive heart failure Acute on chronic congestive heart failure Hyperlipidemia Type 2 diabetes Disposition Discharged home in good condition Has follow-up appointment with Elan Mccormick from Cardiology on ThursdayJuly 17 New medications Patient was recently started on Lasix 3 times per week. However he looks euvolemic at this point in time and after discussion with his home health specialist will discharge him without any diuretic and Cardiology can determine need for future diuretics. I spent over 35 min on discussions with family, discharge planning and arranging outpatient follow-up.
== END 2018-07-13 11:10 | disposition home or self-care (01) | DRG 291 ==
LOC: F2W 21:53 → OBSVTOIN 07-10 20:29
PROVIDERS: ADMIT Internal Medicine; ATTEND Internal Medicine
DX: I11.0 Hypertensive heart disease with heart failure (principal); I50.23 Acute on chronic systolic (congestive) heart failure; J96.01 Acute respiratory failure with hypoxia; E78.5 Hyperlipidemia, unspecified; E11.9 Type 2 diabetes mellitus without complications; Z86.73 Personal history of transient ischemic attack (TIA), and cerebral infarction without residual deficits; I25.2 Old myocardial infarction; Z95.0 Presence of cardiac pacemaker; Z95.5 Presence of coronary angioplasty implant and graft; Z87.891 Personal history of nicotine dependence; J43.9 Emphysema, unspecified
CPT/HCPCS: 84484-ER; 96374; 97161-GP; 97165-GO; A9500; G0378; J1644; J1815; J1940; J2785; Q9957; Q9967

== ENCOUNTER → 2018-07-23 | Outpatient (CLI) | payer OTHER | LOC: BHFA 09:15 | PROVIDERS: ATTEND Internal Medicine Cardiovascular Disease | DX: I25.10 Atherosclerotic heart disease of native coronary artery without angina pectoris (principal); R09.89 Other specified symptoms and signs involving the circulatory and respiratory systems ==

== ENCOUNTER 2018-08-23 21:49 | Emergency (ER) | payer OTHER ==
[2018-08-23 22:41] LABS: PLATELET COUNT 147 10^3/uL (150-400)
--- NOTE | 2018-08-23 22:54 | EDPHY ---
H & P Stated Complaint: SOB Time Seen by Provider: 08/23/18 22:22 HPI/ROS: HPI The patient presents with increased fatigue and shortness of breath today, brought in by concerned family members. They report for about the last 1 week the patient seems more short of breath than usual. He says that he feels "off" , more tired and lightheaded than usual. They said when he was discharged from the hospital on July 13 he improved, however over the last 1 week he seems to be in a slight decline with more shortness of breath than usual. He has been taking all of his medications. He denies any chest pain, palpitations, edema. His weights have been stable. He checked his vital signs today and his heart rate was mostly in the 50s with monitor stating that his heartbeat was irregular. This is unusual for him, his heart rate is normally 68-70 and regular. This was concerning to his family. The patient has an AICD in place for several years for his CHF and normally has a paced rhythm of 70 when I review his EKGs. He has known ischemic systolic CHF with last EF of 11%. In 2 days he is planning to have his AICD updated to a dual chamber pacemaker has this is been recommended by his svp digital sales. He did have his AICD interrogated a few weeks ago and it was working normally. REVIEW OF SYSTEMS 10 systems were reviewed and negative with the exception of the elements mentioned in the history of present illness. PMHx: Ischemic cardiomyopathy with EF of 11%, single-chamber AICD in place, history of CAD status post PCI, chronic renal insufficiency Soc Hx: Here with his family PHYSICAL General Appearance: Alert, no distress Eyes: Pupils equal and round no pallor or injection ENT, Mouth: Mucous membranes moist Respiratory: There are no retractions, lungs are clear to auscultation Cardiovascular: Regular rate and rhythm Gastrointestinal: Abdomen is soft and non-tender, no masses, bowel sounds normal Neurological: A&O, moves all extremities Skin: Warm and dry, no rashes Musculoskeletal: Neck is supple non tender Extremities: symmetrical, full range of motion Psychiatric: Patient is oriented X 3, there is no agitation Source: Patient, Family, Old records Exam Limitations: No limitations - Personal History Current Tetanus/Diphtheria Vaccine: Yes Current Tetanus Diphtheria and Acellular Pertussis (TDAP): Yes - Medical/Surgical History Hx Asthma: No Hx Chronic Respiratory Disease: No Hx Diabetes: Yes Hx Cardiac Disease: Yes Hx Renal Disease: No Hx Cirrhosis: No Hx Alcoholism: No Hx HIV/AIDS: No Hx Splenectomy or Spleen Trauma: No Other PMH: CVA, NC, PACEMAKER AND CARDIAC STENTS, HIGH CHOLESTROL, CHF, DM - Social History Smoking Status: Former smoker Constitutional: Initial Vital Signs Heart Rate 63 08/23/18 21:55 Respiratory Rate 19 08/23/18 21:55 Blood Pressure 101/44 L 08/23/18 21:55 O2 Sat (%) 90 L 08/23/18 21:55 O2 Delivery Mode Room Air O2 (L/minute) 2 Allergies/Adverse Reactions: benzocaine [Benzocaine] Allergy (Severe, Verified 06/30/16 12:09) Anaphylaxis niacin [From Niaspan] Allergy (Severe, Verified 06/30/16 12:09) Rash simvastatin [Simvastatin] Allergy (Severe, Verified 06/30/16 12:09) Hives warfarin [Warfarin] Allergy (Severe, Verified 06/30/16 12:09) Other-Enter Comments Home Medications: Medication Instructions Recorded Aspirin [Aspirin 81mg (*)] 81 mg PO DAILY 08/18/18 Aspirin/Dipyridamole 25/200 1 each PO BID 08/18/18 [Aggrenox] Atorvastatin Calcium [Lipitor 10 10 mg PO DAILY 08/18/18 mg (*)] Carvedilol [Coreg (*)] 25 mg PO BIDMEAL 08/18/18 Cholecalciferol Vit D3 [Vitamin D3 1,000 units PO DAILY 08/18/18 (*)] Glimepiride [Amaryl 2 MG (*)] 1 mg PO DAILY 08/18/18 Glucagon,Human Recombinant 1 mg IJ ONCE 08/18/18 [Glucagon Emergency Kit] Herbals/Supplements -Info Only 1 ea PO DAILY 08/18/18 Ipratropium 0.06% Nasal [Atrovent 2 sprays EACHNARE TID PRN 08/18/18 0.06% Nasal (RX)] Nitroglycerin [Nitrostat 0.4 mg 0.4 mg SL Q5M PRN 08/18/18 (*)] Psyllium Husk (with Sugar) 1 each PO DAILY 08/18/18 [Metamucil Packet] Sacubitril/Valsartan 26Mg 1 ea PO BID 08/18/18 [Entresto 24 mg/26 mg (RX)] Spironolactone [Aldactone 25 MG 12.5 mg PO DAILY 08/18/18 (*)] Medical Decision Making - Diagnostics EKG Interpretation: EKG: Complete interpretation has been separately recorded in the [facility] archive. Summary impression: Av dual paced complexes Imaging Results: Imaging Impressions Chest X-Ray 08/23/18 22:32 Impression: Findings consistent with airways disease are noted with no superimposed acute abnormality identified. Imaging: I viewed and interpreted images myself Differential Diagnosis: This is a 78-year-old man with known ischemic cardiomyopathy with EF of about 11 % who presents with 1 week of progressive shortness of breath, today feeling off with heart rates lower than usual in the 50s, normally is 68-70. Blood pressure slightly lower than usual 90s over 50s. He does not appear to be fluid overloaded. His EKG does show an AV dual placed rhythm, wears previously he was ventricularly paced with a rate of 70. He is awaiting dual chamber AICD in currently has single chamber. Here in the emergency department, EKG shows that he has both atrial and ventricularly paced complexes where as previously he was ventricularly paced at 70. This is likely what is causing his heart rate to read as irregular and in the 50s. His blood pressures were stable on several occasions. He has ongoing renal insufficiency, unchanged from previous. He is not anemic. His BNP is elevated to 2300 from about 1200. However, his chest x-ray shows no signs of fluid overload, and his weight is are unchanged at home. I consulted with the on-call svp digital sales Dr. Bridges. We discussed his case. We agree that he does not require admission at this time. He has plans for the dual-chamber pacemaker in 2 days, which may likely improve his symptoms. He feels comfortable going home and will be discharged. I have offered him admission, however he declines. - Data Points Laboratory Results: Laboratory Results 08/23/18 22:05 08/23/18 22:05 08/23/18 08/23/18 08/23/18 22:51 22:05 22:05 WBC 7.58 10^3/uL 10^3/uL (3.80-9.50) RBC 4.78 10^6/uL 10^6/uL (4.40-6.38) Hgb 15.1 g/dL g/dL (13.7-17.5) Hct 43.0 % % (40.0-51.0) MCV 90.0 fL fL (81.5-99.8) MCH 31.6 pg pg (27.9-34.1) MCHC 35.1 g/dL g/dL (32.4-36.7) RDW 13.3 % % (11.5-15.2) Plt Count 147 10^3/uL L 10^3/uL (150-400) MPV 10.7 fL fL (8.7-11.7) Neut % (Auto) 64.8 % % (39.3-74.2) Lymph % (Auto) 15.7 % % (15.0-45.0) [place] % (Auto) 9.1 % % (4.5-13.0) Eos % (Auto) 8.4 % H % (0.6-7.6) Baso % (Auto) 1.1 % % (0.3-1.7) Nucleat RBC Rel Count 0.0 % % (0.0-0.2) Absolute Neuts (auto) 4.91 10^3/uL 10^3/uL (1.70-6.50) Absolute Lymphs (auto) 1.19 10^3/uL 10^3/uL (1.00-3.00) Absolute Monos (auto) 0.69 10^3/uL 10^3/uL (0.30-0.80) Absolute Eos (auto) 0.64 10^3/uL H 10^3/uL (0.03-0.40) Absolute Basos (auto) 0.08 10^3/uL 10^3/uL (0.02-0.10) Absolute Nucleated RBC 0.00 10^3/uL 10^3/uL (0-0.01) Immature Gran % 0.9 % % (0.0-1.1) Immature Gran # 0.07 10^3/uL 10^3/uL (0.00-0.10) Sodium 133 mEq/L L mEq/L (135-145) Potassium 4.7 mEq/L mEq/L (3.5-5.2) Chloride 104 mEq/L mEq/L (97-110) Carbon Dioxide 18 mEq/l L mEq/l (22-31) Anion Gap 11 mEq/L mEq/L (6-14) BUN 45 mg/dL H mg/dL (7-23) Creatinine 1.6 mg/dL H mg/dL (0.7-1.3) Estimated GFR 42 Glucose 122 mg/dL H mg/dL (70-100) Calcium 9.2 mg/dL mg/dL (8.5-10.4) POC Troponin I 0.02 ng/mL ng/mL (0.00-0.08) NT-Pro-B Natriuret Pep 2300 pg/mL H pg/mL (0-450) Point of Care Test Results: Chemistry 08/23/18 22:51 POC Troponin I 0.02 ng/mL ng/mL (0.00-0.08) Departure - Departure Disposition: Home, Routine, Self-Care Clinical Impression: Ischemic cardiomyopathy Fatigue Qualifiers: Fatigue type: unspecified Qualified Code(s): R53.83 - Other fatigue Condition: Good Instructions: Heart Failure (ED), Pacemaker (DC) Additional Instructions: Please follow-up for your dual chamber pacemaker as planned. You should return to the emergency department if your worse in any way. Referrals: Andrea Frausto DO [Primary Care Provider] - As per Instructions Larry Cool MD [Medical Doctor] - As per Instructions
[2018-08-24 00:20] VITALS: BP 116/69
== END 2018-08-24 00:19 | disposition home or self-care (01) ==
DX: I25.5 Ischemic cardiomyopathy (principal); R53.83 Other fatigue; I50.20 Unspecified systolic (congestive) heart failure; Z95.810 Presence of automatic (implantable) cardiac defibrillator
CPT/HCPCS: 84484-ER

== ENCOUNTER 2018-08-25 06:49 | Observation (INO) | payer OTHER ==
--- NOTE | 2018-08-24 21:23 | PDANEPAE ---
ANE History of Present Illness EF 11% ANE Past Medical History - Cardiovascular History Hx Hypertension: No Hx Arrhythmias: No Hx Chest Pain: Yes Hx Coronary Artery / Peripheral Vascular Disease: Yes Hx CHF / Valvular Disease: Yes Hx Palpitations: No Cardiovascular History Comment: AV pacemaker in place - Pulmonary History Hx COPD: No Hx Asthma/Reactive Airway Disease: No Hx Recent Upper Respiratory Infection: No Hx Oxygen in Use at Home: Yes Hx Sleep Apnea: No - Neurologic History Hx Cerebrovascular Accident: Yes Hx Seizures: No Hx Dementia: No - Endocrine History Hx Diabetes: Yes Hypothyroid: No Hyperthyroid: No Obesity: no - Renal History Hx Renal Disorders: Yes Renal History Comment: CRI-Cr 1.6 - Liver History Hx Hepatic Disorders: No - Neurological & Psychiatric Hx Hx Neurological and Psychiatric Disorders: No - Congenital Disorder History Hx Congenital Disorders: No - GI History GERD: no Hx Gastrointestinal Disorders: No ANE Review of Systems Review of Systems: - Exercise capacity METS (RN): 2 METS ANE Patient History - Allergies Allergies/Adverse Reactions: benzocaine [Benzocaine] Allergy (Severe, Verified 06/30/16 12:09) Anaphylaxis niacin [From Niaspan] Allergy (Severe, Verified 06/30/16 12:09) Rash simvastatin [Simvastatin] Allergy (Severe, Verified 06/30/16 12:09) Hives warfarin [Warfarin] Allergy (Severe, Verified 06/30/16 12:09) Other-Enter Comments - Home Medications Home medications: home medication list seen and reviewed Home Medications: Aspirin [Aspirin 81mg (*)] 81 mg PO DAILY 08/18/18 [Last Taken Unknown] Aspirin/Dipyridamole 25/200 [Aggrenox] 1 each PO BID 08/18/18 [Last Taken Unknown] Atorvastatin Calcium [Lipitor 10 mg (*)] 10 mg PO DAILY 08/18/18 [Last Taken Unknown] Carvedilol [Coreg (*)] 25 mg PO BIDMEAL 08/18/18 [Last Taken Unknown] Cholecalciferol Vit D3 [Vitamin D3 (*)] 1,000 units PO DAILY 08/18/18 [Last Taken Unknown] Glimepiride [Amaryl 2 MG (*)] 1 mg PO DAILY 08/18/18 [Last Taken Unknown] Glucagon,Human Recombinant [Glucagon Emergency Kit] 1 mg IJ ONCE 08/18/18 [Last Taken Unknown] Herbals/Supplements -Info Only 1 ea PO DAILY 08/18/18 [Last Taken Unknown] Ipratropium 0.06% Nasal [Atrovent 0.06% Nasal (RX)] 2 sprays EACHNARE TID PRN [Last Taken Unknown] Nitroglycerin [Nitrostat 0.4 mg (*)] 0.4 mg SL Q5M PRN 08/18/18 [Last Taken Unknown] Psyllium Husk (with Sugar) [Metamucil Packet] 1 each PO DAILY 08/18/18 [Last Taken Unknown] Sacubitril/Valsartan 24/26Mg [Entresto 24 mg/26 mg (RX)] 1 ea PO BID 08/18/18 [ Last Taken Unknown] Spironolactone [Aldactone 25 MG (*)] 12.5 mg PO DAILY 08/18/18 [Last Taken Unknown] - NPO status NPO Status: no food or drink >8 hours - Anes Hx Anes Hx: no prior problems - Smoking Hx Smoking Status: Former smoker Marijuana use: No - Alcohol Use Alcohol Use: None - Family Anes Hx Family Anes Hx: none ANE Labs/Vital Signs - Labs Result Diagrams: 08/25/18 07:00 08/25/18 07:00 ANE Physical Exam - Airway Neck exam: FROM Mallampati Score: Class 2 Mouth exam: normal dental/mouth exam - Pulmonary Pulmonary: no respiratory distress, clear to auscultation - Cardiovascular Cardiovascular: irregularly irregular - ASA Status ASA Status: IV ANE Anesthesia Plan Anesthesia Plan: general endotracheal anesthesia, GA w LMA, GA with mask, MAC Lines/Monitors: arterial line
[2018-08-25] MEDS ORDERED: BACITRACIN IRRIGATION/NS 50,000 UNITS/1,000 ML BTL IRR ONE (06:51)
[2018-08-25] MEDS ORDERED: NS 1,000 ML IV ONE (06:51)
[2018-08-25] MEDS ORDERED: ceFAZolin 2 GM/DEXTROSE 100 ML IV ONE (06:51)
[2018-08-25 07:29] LABS: PLATELET COUNT 131 10^3/uL (150-400)
[2018-08-25 07:34] LABS: INR 1.07 (0.83-1.16); PROTIME(PATIENT) 14.1 SEC (12.0-15.0)
[2018-08-25] MEDS ORDERED: MIDAZOLAM 2 MG/2 ML VIAL ONE (07:57)
[2018-08-25] MEDS ORDERED: PROPOFOL 200 MG/20 ML VIAL ONE (07:57)
[2018-08-25] MEDS ORDERED: fentaNYL 100 MCG/2 ML INJ ONE ×2 (07:57→11:00)
[2018-08-25] MEDS ORDERED: BUPIVACAINE 0.75% 10 ML SDV ONE (08:04)
[2018-08-25] MEDS ORDERED: IOPAMIDOL (ISOVUE-300) 100 ML BTL ONE (08:04)
[2018-08-25] MEDS ORDERED: LIDOCAINE 1% 300 MG/30 ML SDV ONE (08:04)
[2018-08-25] MEDS ORDERED: ePHEDrine SULFATE 25 MG/5 ML SYR ONE ×2 (08:42→11:05)
--- NOTE | 2018-08-25 08:50 | PDGENHP ---
History & Physical Chief Complaint: chf Relevant Physical Exam: s1s2 rrr cta ao3 Cardiorespiratory Assessment: for upgrade to bivicd
[2018-08-25] MEDS ORDERED: NITROGLYCERIN 1,500 MCG/15 ML VIAL MISC ONE (10:14)
[2018-08-25] MEDS ORDERED: PHENYLEPHRINE HCL 100 MCG/ML SYR ONE ×2 (10:22→11:09)
[2018-08-25] MEDS ORDERED: ETOMIDATE 20 MG/10 ML VIAL ONE (10:22)
[2018-08-25] MEDS ORDERED: fentaNYL 100 MCG/2 ML INJ IVP PRN (11:18)
[2018-08-25] MEDS ORDERED: NALOXONE HCL 0.4 MG/ML INJ IVP PRN (11:18)
[2018-08-25] MEDS ORDERED: ONDANSETRON 4 MG/2 ML VIAL IVP PRN (11:18)
[2018-08-25] MEDS ORDERED: PHENYLEPHRINE HCL 100 MCG/ML SYR IVP PRN (11:18)
--- NOTE | 2018-08-25 11:19 | POSTANESTH ---
Post Anesthetic Evaluation Cardiovascular Status: Normal, Stable Respiratory Status: Normal, Stable Level of Consciousness/Mental Status: Can Participate in Eval Pain Control: Adequate, Prn Tx Ordered Nausea/Vomiting Control: Adequate, Prn Tx Ordered Complications Possibly Related to Anesthesia: None Noted
[2018-08-25] MEDS ORDERED: ONDANSETRON 4 MG/2 ML VIAL ONE (11:20)
[2018-08-25] MEDS ORDERED: IPRATROPIUM 0.06% NASAL SPRAY EACHNARE PRN (11:44)
[2018-08-25] MEDS ORDERED: NITROGLYCERIN 0.4 MG BTL SL PRN (11:44)
--- NOTE | 2018-08-25 11:44 | EPPROC ---
Electrophysiology Procedure Note: PROCEDURE PERFORMED: 1. Upgrade of A-V ICD to A-BiV ICD 2. Subclavian vein angiography 3. Fluoroscopy INDICATION: Existing A-V ICD, patient pacemaker dependent (AV delay >400 ms, sinus rate 30 bpm) Cardiomyopathy PROCEDURE NOTE: Patient presented to the cardiac catheterization laboratory in a fasting, postabsorptive state. Dr. Robles administered LMA. The L infraclavicular area was prepped and draped in the usual sterile fashion. Lidocaine plus bupivacaine was used for local anesthesia. L subclavian venography was performed by injection of iodinated contrast into the L antecubital vein. This was done to assure patency of the vein and also to assess for any anatomical aberrations. Using a combination of blunt and sharp dissection and electrocautery, the dissection was carried down to the prepectoral fascia. The existing ICD pocket was exposed. All bleeding was controlled with electrocautery. The pocket was packed with gauze soaked in antibiotic solution. Fluoroscopy was utilized during the entire procedure for venous access and placement of the leads. Using a direct stick technique the left extrathoracic axillary vein was accessed with 1 sticks using the modified Seldinger technique. 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 Following this a dilator was placed and the guidewire was exchanged for an Amplatzer superstiff guidewire. The stenosis was progressively dilated with up to 12 Khmer dilators. A A purse string suture was applied around the guide wire. Diagnostic testing of the existing leads was performed. A 9 Khmer Whorley sheath was advanced over the guide wire into the subclavian vein. The coronary sinus ostium was engaged. Occlusion retrograde coronary sinus angiography was performed in 2 views. There was a large Thebesain valve at the ostium of the coronary sinus. The sheath could be easily advanced over the guidewire initially but subsequently there was severe spasm of the mid coronary sinus. We could pass a guidewire but not lead over the guidewire. 1000 mcg of nitroglycerin was used in 3 separate boluses. Following this a coronary sinus quadrapolar lead was advanced into the coronary sinus. An angioplasty wire was advanced through the lead and advanced into the mid portion of the lateral branch of the coronary sinus. The lead was advanced over the angioplasty wire. Pacing threshold, sensing and impedance was determined. There was no diaphragmatic stimulation at maximum output. The delivery system and the 9 Fr sheath were peeled away. Again, pacing threshold, sensing and impedance was determined. There was no diaphragmatic stimulation at maximum output. The CS lead was secured to the prepectoral fascia with 3nonabsorbablesutures. Pacing threshold and sensing parameters of the RA and RV leads were checked again. The gauze packing was removed from the pacemaker pocket. The pocket was again inspected for any bleeding. The leads were attached to the pacemaker securely. The pacemaker was inserted into the pocket and secured in place with a nonabsorbable suture. Fluoroscopy was performed in THOMPSON and ALEJO planes to verify right sided placement of the RA and RV leads. Also fluoroscopy of the pacemaker pocket was performed. Defibrillation threshold testing was not performed. The pacemaker pocket was closed in 3 layers with absorbable monocryl sutures and andrés. Appropriate dressing was applied. The patient left the cardiac catheterization laboratory in stable condition. Defibrillation testing: Not performed Serial Numbers: 1. Device [facility] [id number] (NOT MRI COMPLIANT DUE TO ABANDONED ICD LEAD) 2. Atrial Lead Guidant [id number] 3. Right Ventricular Lead Guidant [id number] 4. Left Ventricular Lead [facility] [id number] Stimulation Thresholds & Impedance Measurements: 1. Atrial Lead 0.75 V 0.5 ms 390 ohm P 1.8 mV 2. Right Ventricular Lead 1.25 V 0.5 ms 310 ohm R 7.2 mV 3. Left Ventricular Lead 2.5 V 1.5 ms 910 ohm R 8.3 mV 4. HV impedance 82 ohms Robin Pacing Parameters: 1. Pacing mode DDDR 2. Lower rate 70 ppm 3. Upper [id number] ppm Tachycardia therapy parameters: VF zone : Detection 200 bpm ATP x 1, 30 J, 40 J VT zone : Detection 181 bpm ATP x 3, 30 J, 40 J Monitor only VT zone 150 bpm Patient Problems: Problems Problem Status Onset Chronic Disease Mgmt/Transitional care Acute Cor pulmonale Acute
[2018-08-25] MEDS ORDERED: GLUCAGON EMERGENCY 1 MG IJ SCH (11:45)
[2018-08-25] MEDS ORDERED: FUROSEMIDE 20 MG/2 ML VIAL IVP ONE (12:10)
[2018-08-25] MEDS ORDERED: FUROSEMIDE 20 MG/2 ML VIAL ONE (12:19)
[2018-08-25] MEDS: ACETAMINOPHEN 325 MG TAB PO PRN (17:18)
[2018-08-25] MEDS: CARVEDILOL 25 MG TAB PO SCH (17:18)
[2018-08-25] MEDS: ASPIRIN/DIPYRIDAMOLE CAPSULE PO SCH (20:36)
[2018-08-25] MEDS: HYDROCODONE/APAP 5/325 TAB PO PRN (20:38)
[2018-08-25] MEDS: SACUBITRIL/VALSARTAN 24/26MG 1 EA TAB PO SCH (20:39)
[2018-08-26] MEDS: SACUBITRIL/VALSARTAN 24/26MG 1 EA TAB PO SCH ×2 (00:01→08:50)
[2018-08-26] MEDS: ACETAMINOPHEN 325 MG TAB PO PRN ×2 (01:51→08:49)
[2018-08-26] MEDS: HYDROCODONE/APAP 5/325 TAB PO PRN (01:51)
[2018-08-26 04:33] LABS: PLATELET COUNT 108 10^3/uL (150-400)
[2018-08-26 08:06] VITALS: BP 118/84
[2018-08-26] MEDS: ASPIRIN/DIPYRIDAMOLE CAPSULE PO SCH (08:48)
[2018-08-26] MEDS: CARVEDILOL 25 MG TAB PO SCH (08:50)
[2018-08-26] MEDS ORDERED: GLIMEPIRIDE 2 MG TAB PO SCH (09:00)
[2018-08-26] MEDS ORDERED: PSYLLIUM METAMUCIL 1 PKT PO SCH (09:00)
[2018-08-26] MEDS ORDERED: CHOLECALCIFEROL VIT D3 1,000 UNITS TAB PO SCH (09:00)
[2018-08-26] MEDS ORDERED: SPIRONOLACTONE 25 MG TAB PO SCH (09:00)
[2018-08-26] MEDS ORDERED: ASPIRIN 81 MG CHEWABLE TAB PO SCH (09:00)
[2018-08-26] MEDS ORDERED: ATORVASTATIN CALCIUM 10 MG TAB PO SCH (09:00)
--- NOTE | 2018-08-26 10:08 | ASDISCHSUM ---
Discharge Information Plan Status:Home with No Needs Medically Cleared to Leave:08/25/2018 Discharge Date:08/25/2018 CM D/C Disposition:Home, Routine, Self-Care ADT D/C Disposition:Home, Routine, Self-Care Projected Discharge Date:08/25/2018 Transportation at D/C: Discharge Delay Reason: Follow-Up Date:08/25/2018 Discharge Slot: Final Diagnosis: Placement Information Patient Contact Information Contact Name:RUBEN Relationship: Address:[address] City:[place] Alternate Phone: [facility]/Zip Code:[place] [address] Email: Financial Information Financial Class:Medicare Primary Plan Desc:MEDICARE OUTPATIENT Primary Plan Number:[id number] Secondary Plan Desc:FELI HIGGINBOTHAM Secondary Plan Number:[id number] Assessment Information LACE LACE Length of stay for Answers: Less than 1 day current admission Acuity / Level of Answers: No Care: Did the patient have an inpatient admission? Comorbidities - select Answers: Cerebrovascular disease all that apply (CVA, TIA, aneurysms, vasc ular dementia) Congestive heart failure Coronary Artery Disease Diabetes (uncontrolled or controlled) Moderate or severe liver or renal disease Previous myocardial infarction # of Emergency department Answers: 1-2 visits in the last 6 months Score: 12 Date Signed: 08/26/2018 10:08 AM Electronically Signed By:Jessie Horton RN Intervention Information
--- NOTE | 2018-08-26 10:18 | PDHOMEO2F ---
Home Oxygen Face to Face Home Orders: I certify that a physician or a nurse practitioner or physician's costumer assistant has had a [id number]-[id number] encounter with this patient on the date of this order due to the diagnosis listed, which relates to the primary reason the patient requires home oxygen. Alternative treatments have been tried, or considered, and deemed ineffective. It is anticipated that supplemental oxygen will result in improvement with treatment. Home oxygen qualifying diagnosis: CHF, hypoxia SpO2 on room air (%): 84 Frequency of home oxygen needed: continuous Home oxygen liters per minute: 4 Home oxygen delivery device: nasal cannula Concentrator: No E-tanks for mobility and back up: Yes If ordering portable O2, is the patient mobile in the home?: Yes I certify that, based on these findings, the home oxygen is medically necessary for this patient for the following length of time. Length of time home oxygen needed: 3 months
--- NOTE | 2018-08-26 12:48 | PDHOMEO2F ---
Home Oxygen Face to Face Home Orders: I certify that a physician or a nurse practitioner or physician's assistant boys track coach has had a [id number]-li-fpcg encounter with this patient on the date of this order due to the diagnosis listed, which relates to the primary reason the patient requires home oxygen. Alternative treatments have been tried, or considered, and deemed ineffective. It is anticipated that supplemental oxygen will result in improvement with treatment. Home oxygen qualifying diagnosis: CHF, Hypoxia SpO2 on room air (%): 86 Frequency of home oxygen needed: continuous Home oxygen liters per minute: 4 Home oxygen delivery device: nasal cannula Concentrator: Yes E-tanks for mobility and back up: Yes If ordering portable O2, is the patient mobile in the home?: Yes I certify that, based on these findings, the home oxygen is medically necessary for this patient for the following length of time. Length of time home oxygen needed: 3 months
--- NOTE | 2018-08-26 19:12 | GDS ---
[f rep st] DISCHARGE SUMMARY [employer] PROGRAM DIRECTOR: Dr. Larry Cool ADMISSION DIAGNOSES: Cardiomyopathy. DISCHARGE DIAGNOSIS: Cardiomyopathy, status post upgrade of dual-chamber implantable cardioverter defibrillator to biventricular implantable cardioverter defibrillator. PROCEDURES PERFORMED DURING HOSPITALIZATION: 1. Upgrade to biventricular ICD. 2. Chest x-ray 3. Electrocardiogram 4. Subclavian vein angiography. HOSPITAL COURSE: Patient presented 08/25/2018, for upgrade of his existing dual -chamber ICD to a biventricular ICD in the setting of cardiomyopathy with progressive symptoms. He underwent successful upgrade to biventricular ICD with Dr. Larry Cool without any intraprocedure complications. He has done very well in the postprocedure setting and has been ambulating around his room this morning without issue. He has required 4 liters of supplemental oxygen to maintain oxygen saturation greater than 90%. Home oxygen has been ordered for him and has been delivered to our facility. He is appropriate and stable for discharge home today. CURRENT PHYSICAL EXAMINATION: GENERAL: Alert and oriented x4 in no apparent distress. VITAL SIGNS: Blood pressure 118/84, heart rate 71, respiratory rate 12, SpO2 98% on 4 L nasal cannula, temp 36.4 degrees Celsius. RESPIRATORY: Lungs are clear to auscultation without adventitious breath sounds. CARDIAC: Normal S1, S2. Rhythm is regular. ABDOMEN: Normoactive bowel sounds times all 4 quadrants. No masses or tenderness. Soft to palpation. SKIN: [place], warm, dry without cyanosis, clubbing, or peripheral edema. Left pectoral incision has a clean dry dressing in place without evidence of oozing or hematoma. LABORATORY STUDIES: Drawn today CBC and BMP are relatively stable compared to preprocedure. PROCEDURES: BiV upgrade as described above. Preliminary chest x-ray completed this morning demonstrates stable lead positioning. Electrocardiogram done this morning and demonstrates AV paced rhythm with QRS measuring 139 msec post implant of his biventricular device. DISCHARGE DISPOSITION: Patient will be discharged home in stable condition. He is under activity restrictions as below. DISCHARGE MEDICATIONS: Please see discharge medication reconciliation sheet for full details. Please note that there have been no medication changes made during this hospitalization. DISCHARGE INSTRUCTIONS: Post biventricular ICD instructions reviewed with patient and his family in detail. 1. We discussed activity restrictions, including avoidance of lifting his left arm above the level of his left shoulder for at least 4 weeks. 2. He will avoid heavy lifting with his left arm greater than 10 pounds for the next 4 weeks. 3. He will keep his left pectoral incision clean and dry. If the dressing becomes saturated for any reason, he will remove this dressing and leave it open to air. 4. He will have his andrés removed in our device clinic in 1 week. 5. He will follow up with Dr. Cool in 2 to 4 weeks as scheduled. At the time of discharge, patient and family verbalized understanding regarding all discharge instructions without questions or concerns. He has his followup visit scheduled with Dr. Cool and he will contact us with any new or concerning symptoms prior to his upcoming visit. Time spent on discharge greater than 30 minutes. /[id number]/MODL MTDD
--- NOTE | 2018-08-31 15:07 | CPEKG ---
Test Reason : OPEN Blood Pressure : / mmHG Vent. Rate : 055 BPM Atrial Rate : 000 BPM P-R Int : 094 ms QRS Dur : 171 ms QT Int : 553 ms P-R-T Axes : -29 -69 123 degrees QTc Int : 529 ms atrial and ventricular-paced complexes Confirmed by Vj Plaza ([id number]) on 08/31/2018 3:07:16 PM Referred By: Larry Cool Confirmed By:Vj Plaza
--- NOTE | 2018-08-31 16:32 | CPEKG ---
Test Reason : OPEN Blood Pressure : / mmHG Vent. Rate : 070 BPM Atrial Rate : 070 BPM P-R Int : 082 ms QRS Dur : 139 ms QT Int : 464 ms P-R-T Axes : 071 254 153 degrees QTc Int : 501 ms Atrial-ventricular dual-paced rhythm Confirmed by Vj Plaza ([id number]) on 08/31/2018 4:32:20 PM Referred By: Larry Cool Confirmed By:Vj Plaza
--- NOTE | 2018-09-01 11:12 | CPEKG ---
Test Reason : OPEN Blood Pressure : / mmHG Vent. Rate : 071 BPM Atrial Rate : 070 BPM P-R Int : 172 ms QRS Dur : 139 ms QT Int : 500 ms P-R-T Axes : 049 256 143 degrees QTc Int : 544 ms Atrial-ventricular dual-paced complexes Confirmed by Vj Plaza ([id number]) on 09/01/2018 11:12:25 AM Referred By: Larry Cool Confirmed By:Vj Plaza
== END 2018-08-26 13:10 | disposition home or self-care (01) ==
LOC: FCATH 06:49 → F2W 11:51
PROVIDERS: ADMIT Internal Medicine Cardiovascular Disease; ATTEND Internal Medicine Cardiovascular Disease
DX: I42.9 Cardiomyopathy, unspecified (principal); N28.9 Disorder of kidney and ureter, unspecified
CPT/HCPCS: 33225; 33264; 71045; 71046; C1769; C1882; C1900; J0690; J1940; J2370; J2405; J3010; Q9967; J2250; J2704

== ENCOUNTER → 2018-10-13 | Outpatient (CLI) | payer OTHER | LOC: BHFA 10:00 | PROVIDERS: ATTEND Internal Medicine Interventional Cardiology | DX: I50.22 Chronic systolic (congestive) heart failure (principal); I25.10 Atherosclerotic heart disease of native coronary artery without angina pectoris ==